=== PATIENT | male | born 1965 | race Two or more races ===

== ENCOUNTER 2019-09-13 08:04 | Emergency (ER) | payer MEDICAID ==
[~2019-09-13] VITALS: Ht 170.2 cm; Wt 65.8 kg
--- NOTE | 2019-09-13 08:08 | NUR ---
ED Nurse Note: Patient does not recall his medication name.
[2019-09-13] MEDS ORDERED: Omnipaque-300 100ml vial INJ PRN (08:15)
--- NOTE | 2019-09-13 08:15 | NUR ---
ED Nurse Note: Pt arrived with RA 826 due HTN like symptoms; headache. pt also reports diarrhea. pt was picked up at [facility].
--- NOTE | 2019-09-13 08:24 | Emergency Room Report ---
History of Present Illness General Chief Complaint: Diarrhea Source: Patient, EMS Present Illness HPI 54-year-old male history of gallstones history of kidney disease presents with diarrhea x3 months, with some trace blood, severity is moderate, constant multiple episodes a day no vomiting he does endorse some nausea, chills, patient states he is had a negative work-up at [facility] patient denies any chest pain shortness of breath, patient endorses achy abdominal pain diffuse. Patient presents for evaluation and treatment Allergies: Coded Allergies: No Known Allergies (Unverified , 09/13/19) COVID-19 Screening Contact w/high risk pt: Yes Experienced COVID-19 symptoms?: Yes COVID-19 Testing performed ULTRASONIC TESTER: Yes - one month ago COVID-19 Screening: Negative COVID-19 COVID-19 Testing Source: [employer] Patient History Past Medical History: see triage record Reviewed Nursing Documentation: PMH: Agreed; PSxH: Agreed Nursing Documentation-PMH Past Medical History: No History, Except For Hx Hypertension: Yes Review of Systems All Other Systems: negative except mentioned in HPI Physical Exam Vital Signs Date Time Temp Pulse Resp B/P (MAP) Pulse Ox O2 Delivery O2 Flow Rate FiO2 09/13/19 08:04 98.1 88 18 176/90 (118) 99 Room Air Sp02 EP Interpretation: reviewed, normal General Appearance: well appearing, no apparent distress, alert Head: normocephalic, atraumatic Eyes: bilateral eye PERRL, bilateral eye EOMI ENT: uvula midline, moist mucus membranes Neck: supple, thyroid normal, supple/symm/no masses Respiratory: lungs clear, no respiratory distress, no retraction, no accessory muscle use Cardiovascular #1: normal peripheral pulses, regular rate, rhythm, no edema, no gallop, no murmur Gastrointestinal: non tender, soft, no guarding, no rebound Musculoskeletal: normal inspection Neurologic: alert, oriented x3 Psychiatric: mood/affect normal Skin: no rash, warm/dry Medical Decision Making Homeless Attestation I, The treating physician Dr. Churchill, have assessed and agrees that patient is medically stable for discharge to an outpatient disposition. Diagnostic Impression: Primary Impression: Diarrhea Qualified Codes: R19.7 - Diarrhea, unspecified ER Course 54-year-old male with chronic diarrhea, abdomen is soft nontender no rebound no guarding, differential diagnosis includes gastroenteritis, appendicitis, diverticulitis. Labs CT scan unremarkable except for gi thickening consistent with inflammatory processes ie gastroenteritis patient with no emergent pathology at this time unremarkable patient given 1 L of NS, Zofran Patient is currently tolerating good p.o. disposition home with return precautions follow-up with PCP Laboratory Tests Test 09/13/19 08:30 09/13/19 09:50 White Blood Count 7.1 K/UL (4.8-10.8) Red Blood Count 4.70 M/UL (4.70-6.10) Hemoglobin 13.4 G/DL (14.2-18.0) L Hematocrit 43.0 % (42.0-52.0) Mean Corpuscular Volume 91 FL (80-99) Mean Corpuscular Hemoglobin 28.6 PG (27.0-31.0) Mean Corpuscular Hemoglobin Concent 31.2 G/DL (32.0-36.0) L Red Cell Distribution Width 13.8 % (11.6-14.8) Platelet Count 296 K/UL (150-450) Mean Platelet Volume 6.1 FL (6.5-10.1) L Neutrophils (%) (Auto) 71.8 % (45.0-75.0) Lymphocytes (%) (Auto) 16.9 % (20.0-45.0) L Monocytes (%) (Auto) 8.6 % (1.0-10.0) Eosinophils (%) (Auto) 1.1 % (0.0-3.0) Basophils (%) (Auto) 1.6 % (0.0-2.0) Sodium Level 139 MMOL/L (136-145) Potassium Level 4.1 MMOL/L (3.5-5.1) Chloride Level 103 MMOL/L (98-107) Carbon Dioxide Level 26 MMOL/L (21-32) Anion Gap 10 mmol/L (5-15) Blood Urea Nitrogen 13 mg/dL (7-18) Creatinine 0.9 MG/DL (0.55-1.30) Estimated Glomerular Filtration Rate > 60 mL/min (>60) Glucose Level 93 MG/DL (74-106) Calcium Level 8.9 MG/DL (8.5-10.1) Total Bilirubin 0.1 MG/DL (0.2-1.0) L Aspartate Amino Transferase (AST) 20 U/L (15-37) Alanine Aminotransferase (ALT) 17 U/L (12-78) Alkaline Phosphatase 74 U/L (46-116) Total Protein 8.2 G/DL (6.4-8.2) Albumin 4.1 G/DL (3.4-5.0) Globulin 4.1 g/dL Albumin/Globulin Ratio 1.0 (1.0-2.7) Lipase 126 U/L (73-393) Urine Color Pale yellow Urine Appearance Clear Urine pH 7 (4.5-8.0) Urine Specific [place]coe 1.005 (1.005-1.035) Urine Protein Negative (NEGATIVE) Urine Glucose (UA) Negative (NEGATIVE) Urine Ketones Negative (NEGATIVE) Urine Blood Negative (NEGATIVE) Urine Nitrite Negative (NEGATIVE) Urine Bilirubin Negative (NEGATIVE) Urine Urobilinogen Normal MG/DL (0.0-1.0) Urine Leukocyte Esterase Negative (NEGATIVE) CT/MRI/US Diagnostic Results CT/MRI/US Diagnostic Results : Impression TECHNIQUE: No oral contrast, per emergency room physician request. No IV contrast, due to history of renal insufficiency. Spiral acquisitions obtained through the chest, abdomen, and pelvis. Multiplanar reconstructions were generated. Total dose length product 624 mGycm. CTDIvol(s) 8 mGy. Radiation dose was minimized using automated exposure control COMPARISON: none FINDINGS Chest: The upper lobes and upper portions of the lower lobes demonstrate mild panlobular emphysema. A few small bullae are seen in the right upper lobe. A few areas of scarring are seen in the anterior inferior right upper lobe, within the right middle lobe, within the left lower lobe and inferior lingula. A calcified granuloma is seen at the left lung base and there is calcification within some of the scarring in the right middle lobe. No infiltrates, effusions, masses, nodules, or congestion demonstrated. A mass, presumably an enlarged lymph node, there is seen anterior to the ascending thoracic aorta. This measures 3.2 cm in diameter. No other mediastinal or hilar mass or adenopathy demonstrated. The heart size is normal. No pericardial effusion. There is very mild thickening of the distal esophageal wall and possibly a small hiatal hernia. The included thyroid is unremarkable. No axillary or chest wall mass or adenopathy. There is very mild bilateral gynecomastia. The bones are unremarkable except for mild degenerative spondylosis changes. The ascending thoracic aorta is ectatic but not frankly aneurysmal Abdomen pelvis: Lack of enteric contrast limits assessment of the GI tract. There is colonic diverticulosis. The appendix is normal. No small bowel distention. No free or loculated intraperitoneal gas or fluid is evident. There is extensive abdominal and pelvic lymphadenopathy. Enlarged nodes are seen anterior superior to the left hepatic lobe, within the lesser sac, within the maribell hepatis and within the retroperitoneum. There are enlarged bilateral iliac chain nodes. Enlarged nodes are also seen centrally in the pelvis. There is a mass which appears to be with in the wall of the dome of of the bladder the and extending exophytically from it. There is a mass which appears intimately related to the colon wall. The gallbladder is markedly abnormal, demonstrates what appear to be multiple areas of hyperattenuating mural thickening. No definite gallstones. No biliary ductal dilatation. Lack of IV contrast limits assessment of the solid organs. The liver demonstrates a subcentimeter low-attenuation lesion in segment 4A which is too small to characterize. The pancreas demonstrates what appears to be an area of enlargement at the body tail junction which appears to be intrinsic to the pancreatic parenchyma. Immediately inferior to this is an enlarged node. The spleen and adrenals are unremarkable. The kidneys demonstrate multiple fluid attenuation cysts as well as numerous hyperattenuating lesions. Most of the hyperattenuating lesions demonstrate Hounsfield numbers over 70, consistent with hyperdense cysts, but others demonstrate nonspecific attenuation. In addition, there is a large mass measuring 5 cm within the central left kidney which is isoattenuating to normal parenchyma. There is a complex cyst in the lower pole of left kidney which demonstrates somewhat thick mcelroy, mural calcifications, and somewhat thick mural septa. The right kidney is mildly to moderately hydronephrotic, and there is hydroureter extending to just above the bladder, where an enlarged node is noted. Distal to this enlarged node, the ureter is normal in caliber. There are no renal or ureteral calculi. No left hydronephrosis or hydroureter The prostate is enlarged, measures 5.2 cm transverse diameter. IMPRESSION: Extensive lymphadenopathy, as described in detail above. Predominantly within the abdomen and pelvis, but there is also an enlarged mediastinal node. This is in keeping with stated clinical history of lymphoma. No definite acute thoracic abnormality Right hydronephrosis and hydroureter, apparently due to distal ureteral obstruction by an enlarged pelvic node Markedly abnormal and unusual appearing gallbladder wall, with areas of hyperattenuating mural thickening. Further investigation with sonography should be considered Intermediate attenuation 5 cm interpolar region left renal mass. While possibly a proteinaceous cyst, the possibility of solid neoplasm should also be considered. Correlate with clinical history, consider sonography to better characterize as clinically indicated Multiple bilateral fluid attenuation and hyperattenuating renal cysts. Other slightly less hyperattenuating renal lesions are indeterminate but most likely represent hyperattenuating/proteinaceous cysts as well COPD changes and areas of scarring, as described Mild distal esophageal wall thickening and possibly a small hiatal hernia Prostatomegaly Other findings as noted, including degenerative spondylosis, old granulomatous disease, mild gynecomastia The CT scanner at [facility] is accredited by the [employer] and the scans are performed using protocols designed to limit radiation exposure to as low as reasonably achievable to attain images of sufficient resolution adequate for diagnostic evaluation. Dictated By: William Murray MD Electronically Signed By: William Murray MD Signed Date/Time 09/13/19 1048 CC: Dexter Churchill MD Last Vital Signs Date Time Temp Pulse Resp B/P (MAP) Pulse Ox O2 Delivery O2 Flow Rate FiO2 09/13/19 08:04 98.1 88 18 176/90 (118) 99 Room Air Disposition: HOME, SELF-CARE Condition: Stable Scripts Dicyclomine Hcl* (DICYCLOMINE HCL*) 10 Mg Capsule 10 MG ORAL QID PRN for Abdominal cramps, #20 CAP Prov: Dexter Churchill MD 09/13/19 Referrals: [facility] Patient Instructions: Diarrhea, Adult, Viral Gastroenteritis, Adult Additional Instructions: The patient was provided with discharge instructions, notified to follow-up with a primary care doctor and or specialist in the next 24-48 hours, and to return to the ED if they have worsening of their symptoms. Please note that this report is being documented using [employer] technology. This can lead to erroneous entry secondary to incorrect interpretation by the dictating instrument. Dexter Churchill MD Sep 13, 2019 08:24
[2019-09-13 08:38] VITALS: BP 184/101
--- NOTE | 2019-09-13 08:41 | NUR ---
ED Nurse Note: obtained blood sample, sent to lab
[2019-09-13 08:48] LABS: ANION GAP 10 mmol/L (5-15); BLOOD UREA NITROGEN 13 mg/dL (7-18); CALCIUM 8.9 MG/DL (8.5-10.1); CARBON DIOXIDE 26 MMOL/L (21-32); CHLORIDE 103 MMOL/L (98-107); CREATININE 0.9 MG/DL (0.55-1.30); POTASSIUM 4.1 MMOL/L (3.5-5.1); SODIUM 139 MMOL/L (136-145)
[2019-09-13 08:49] LABS: BASOPHILS % (AUTO) 1.6 % (0.0-2.0); EOSINOPHILS % (AUTO) 1.1 % (0.0-3.0); HEMOGLOBIN 13.4 G/DL (14.2-18.0); LYMPHOCYTES % (AUTO) 16.9 % (20.0-45.0); MEAN CORPUSCULAR VOLUME 91 FL (80-99); MONOCYTES % (AUTO) 8.6 % (1.0-10.0); NEUTROPHILS % (AUTO) 71.8 % (45.0-75.0); PLATELET COUNT 296 K/UL (150-450); RED CELL DISTRIBUTION WIDTH 13.8 % (11.6-14.8); WHITE BLOOD COUNT 7.1 K/UL (4.8-10.8)
[2019-09-13 08:52] LABS: ALANINE AMINOTRANSFERASE 17 U/L (12-78); ALBUMIN 4.1 G/DL (3.4-5.0); ALKALINE PHOSPHATASE 74 U/L (46-116); ASPARTATE AMINO TRANSFERASE 20 U/L (15-37); BILIRUBIN,TOTAL 0.1 MG/DL (0.2-1.0)
--- NOTE | 2019-09-13 09:21 | NUR ---
ED Nurse Note: Reinforced pt that a urine sample must be obtained, pt request to rest in bed first. pt calm, comfortable in bed. blankets provided, lights dimmed to increase comfort. BP elevated 180-190 SBP informed ERMD. awaiting orders
--- NOTE | 2019-09-13 09:35 | NUR ---
ED Nurse Note: Pt on phone with Daysi Forte from [facility] for placement options.
--- NOTE | 2019-09-13 09:56 | NUR ---
ED Nurse Note: Pt given resources for [facility] and phone numbers. pt was able to ambulate to restroom and pt trying to obtain urine sample.
--- NOTE | 2019-09-13 09:58 | NUR ---
ED Nurse Note: urine sample obtained. pt taken to CT on wheel chair.
[2019-09-13 10:10] LABS: APPEARANCE,URINE CLEAR; BILIRUBIN, URINE NEGATIVE (NEGATIVE); COLOR,URINE PALE YELLOW; GLUCOSE, URINE (UA) NEGATIVE (NEGATIVE); KETONES,URINE NEGATIVE (NEGATIVE); LEUKOCYTE ESTERASE ,URINE NEGATIVE (NEGATIVE); NITRITE,URINE NEGATIVE (NEGATIVE); PH,URINE 7 (4.5-8.0); PROTEIN,URINE NEGATIVE (NEGATIVE); UROBILINOGEN,URINE NORMAL MG/DL (0.0-1.0)
--- NOTE | 2019-09-13 10:15 | NUR ---
ED Nurse Note: pt returned from CT. vss.
--- NOTE | 2019-09-13 11:04 | Diagnostic Imaging Report ---
Clinical Indication: Abdominal pain Technique: No oral contrast utilized, per emergency room physician request IV administration nonionic contrast. Venous phase spiral acquisition obtained through the abdomen and pelvis. Multiplanar reconstructions were generated. Total dose length product 198 mGycm. CTDIvol(s) 4 mGy. Dose reduction achieved using automated exposure control Comparison: none Findings: Lack of enteric contrast limits assessment of the GI tract. There is equivocal mild wall thickening of the gastric antrum, duodenum, and proximal jejunum. No small bowel distention. No free or loculated intraperitoneal gas or fluid is evident. The distal esophagus is unremarkable. The liver, gallbladder, bile ducts, pancreas, spleen, adrenals, kidneys are unremarkable. The bladder wall is thickened. No pelvic mass or adenopathy. There is subtle slight haziness to the fat surrounding the abdominal aorta, the common iliac arteries, and the inferior mesenteric artery, more questionably the celiac axis and superior mesenteric arteries. No arterial wall thickening is demonstrated, however. The included lung bases are clear. The bones demonstrate bilateral L5 spondylolysis, grade 2 L5 on S1 spondylolisthesis, and considerable secondary degenerative change. Impression: Bladder wall thickening, consistent with cystitis Limited assessment of the GI tract, due to lack of enteric contrast administration Equivocal mild wall thickening of the gastric antrum, duodenum, proximal jejunum. If real, this could indicate mild gastroenteritis changes. Correlate with clinical findings Subtle slight haziness to the fat surrounding the abdominal aorta, common iliac arteries, inferior mesenteric artery and more equivocally the celiac axis and superior mesenteric arteries. Could indicate early arteritis changes. Bilateral L5 spondylolysis, grade 2 L5 on S1 spondylolisthesis, and considerable secondary degenerative change The CT scanner at [facility] is accredited by the [employer] and the scans are performed using protocols designed to limit radiation exposure to as low as reasonably achievable to attain images of sufficient resolution adequate for diagnostic evaluation.
[2019-09-13] MEDS ORDERED: DICYCLOMINE HCL10 MG ORAL (11:12)
--- NOTE | 2019-09-13 11:19 | NUR ---
ER DISCHARGE NOTE: Patient is cleared to be discharged per ERMD, pt is aox4, on room air, with stable vital signs. pt was given dc and prescription instructions, pt was able to verbalize understanding, pt id band and iv site removed without complications. pt is able to ambulate with steady gait. pt took all belongings. Pt given resources, meal, clothes adeqaute
[2019-09-13 11:20] VITALS: BP 162/88
== END 2019-09-13 11:34 | disposition home or self-care (01) ==
LOC: EDBD 08:04 → EMR 08:35
DX: R19.7 Diarrhea, unspecified (principal); I10 Essential (primary) hypertension; N40.0 Benign prostatic hyperplasia without lower urinary tract symptoms; M47.9 Spondylosis, unspecified; N13.1 Hydronephrosis with ureteral stricture, not elsewhere classified; N28.1 Cyst of kidney, acquired; N62 Hypertrophy of breast
CPT/HCPCS: 36415; 74177; 80053; 81003; 83690; 85025; 96361; 96374; 96375; J2405; J7030; Q9967; S0028; Z7502; 99284